=== PATIENT | female | born 1990 | race Caucasian/White ===

== ENCOUNTER 2021-03-16 13:42 | Observation (INO) | payer OTHER ==
[~2021-03-16] VITALS: Ht 162.6 cm; Wt 73.5 kg
[2021-03-16] MEDS ORDERED: PNV91TAB8 PO (14:15)
[2021-03-16 14:19] VITALS: BP 124/72
== END 2021-03-16 15:00 | disposition home or self-care (01) ==
LOC: MLD 13:42
PROVIDERS: ADMIT Obstetrics & Gynecology; ATTEND Obstetrics & Gynecology
DX: O26.892 Other specified pregnancy related conditions, second trimester (principal); R10.9 Unspecified abdominal pain; Z3A.22 22 weeks gestation of pregnancy
CPT/HCPCS: 59025; 81000; G0378

== ENCOUNTER 2023-12-14 02:57 | Emergency (ER) | payer MEDICAID, OTHER ==
[~2023-12-14] VITALS: Ht 160 cm; Wt 72.6 kg
[~2023-12-14 02:57] MED LIST: PNV91TAB8 PO
[2023-12-14 03:15] VITALS: BP 129/90; PULSE 101; RESP 16; TEMP 98; O2SAT 99
[2023-12-14] MEDS ORDERED: METR-435 PO (05:23)
[2023-12-14 05:30] VITALS: BP 129/90; PULSE 101; RESP 16; TEMP 98; O2SAT 99
== END 2023-12-14 05:30 | disposition home or self-care (01) ==
LOC: MED 02:57
DX: K52.9 Noninfective gastroenteritis and colitis, unspecified (principal); L73.8 Other specified follicular disorders
CPT/HCPCS: 99283